=== PATIENT | male | born 1975 | race Caucasian/White ===

== ENCOUNTER 2020-11-26 21:57 | Inpatient (IN) | payer MEDICAID ==
[~2020-11-26] VITALS: Ht 185.4 cm; Wt 99.8 kg
[2020-11-26 23:07] LABS: EOSINOPHILS % (AUTO) 0.3 % (0-6); HEMOGLOBIN 15.9 g/dl (14.0-17.9); MONOCYTES # (AUTO) 0.7 X10'3 (0-0.9); WHITE BLOOD COUNT 9.6 X10'3 (4.5-11.0)
[2020-11-26 23:08] LABS: BASOPHILS # (AUTO) 0.1 X10'3 (0-0.2); BASOPHILS % (AUTO) 0.5 % (0-1); HEMATOCRIT 45.7 % (42.0-52.0); LYMPHOCYTES # (AUTO) 1.3 X10'3 (1.1-4.8); LYMPHOCYTES % (AUTO) 13.1 % (21-51); MEAN CORPUSCULAR HEMOGLOBIN 29.8 PG (27.0-31.0); MEAN CORPUSCULAR HGB CONC 34.7 g/dL (33.0-36.5); MEAN CORPUSCULAR VOLUME 85.9 FL (78-98); MEAN PLATELET VOLUME 8.6 FL (7.4-10.4); MONOCYTES % (AUTO) 7.4 % (2-12); NEUTROPHILS # (AUTO) 7.6 X10'3 (1.8-7.7); NEUTROPHILS % (AUTO) 78.7 % (42-75); PLATELET COUNT 233 X10'3 (140-440); RED BLOOD COUNT 5.32 X10'6 (4.70-6.10); RED CELL DISTRIBUTION WIDTH 14.3 % (11.5-14.5)
[2020-11-26 23:22] LABS: ALANINE AMINOTRANSFERASE 56 U/L (12-78); ALBUMIN 4.4 G/DL (3.4-5.0); ALBUMIN/GLOBULIN RATIO 1.3 (1.1-1.5); ALKALINE PHOSPHATASE 127 IU/L (46-116); ANION GAP 15 (8-16); ASPARTATE AMINO TRANSFERASE 25 U/L (10-37); BILIRUBIN,TOTAL 0.4 MG/DL (0.1-1.0); BLOOD UREA NITROGEN 21 MG/DL (7-18); BUN/CREATININE RATIO 17.9 (5.4-32.0); CALCIUM 9.4 MG/DL (8.5-10.1); CHLORIDE 99 MMOL/L (99-107); CREATININE 1.17 MG/DL (0.60-1.10); GLUCOSE 362 MG/DL (70-104); POTASSIUM 4.1 MMOL/L (3.5-5.1); SODIUM 135 MMOL/L (135-145); TOTAL PROTEIN 7.8 G/DL (6.4-8.2); eGFR 67 ML/MIN
--- NOTE | 2020-11-26 23:24 | NUR ---
patient able to urinate without any difficulty- sample sent to lab
[2020-11-26 23:25] LABS: CLARITY,URINE CLEAR (Clear); COLOR,URINE YELLOW (Yellow); GLUCOSE, URINE >=1000 mg/dl (Neg); KETONES,URINE NEGATIVE (Neg); LEUKOCYTE ESTERASE ,URINE NEGATIVE (Neg); NITRITES, URINE NEGATIVE (Neg); OCCULT BLOOD,URINE NEGATIVE (Neg); PROTEIN,URINE NEGATIVE (Neg); UROBILINOGEN,URINE 0.2 E.U/dL (0.2-1.0)
[2020-11-26 23:35] LABS: RBC,URINE 0-2 /HPF (0-2); UA COLLECTION TYPE CLN CATCH MIDSTREAM; WBC,URINE NONE SEEN /HPF (0-4)
[2020-11-26 23:36] LABS: BACTERIA,URINE NONE SEEN /HPF (Neg); SQUAMOUS EPITHELIAL CELL,UR FEW /LPF (FEW)
[2020-11-26] MEDS ORDERED: normal saline 1000ml 1,000 ML IV ONE (23:50)
[2020-11-27] MEDS: MESSAGE TO NURSING PO SCH
[2020-11-27] MEDS ORDERED: iohexol 300mg/ml 100ml inj. ONE (00:07)
[2020-11-27] MEDS ORDERED: ATOR40TA72 PO (00:52)
[2020-11-27] MEDS ORDERED: LISI-790 PO (00:52)
[2020-11-27] MEDS ORDERED: INSU100I31 SQ (00:52)
[2020-11-27] MEDS ORDERED: GLYB5TAB7 PO (00:52)
[2020-11-27] MEDS ORDERED: BUPR-72 PO (00:52)
[2020-11-27] MEDS ORDERED: ARIP5TAB60 PO (00:52)
[2020-11-27] MEDS ORDERED: METF500T3 PO (00:52)
[2020-11-27] MEDS ORDERED: ondansetron/PF 4mg/2ml inj IV PRN ×3 (01:30→01:35)
[2020-11-27] MEDS ORDERED: magnesium hydroxide 30ml (MOM) UD suspension PO PRN ×3 (01:30→01:35)
[2020-11-27] MEDS ORDERED: mag hydrox/Alum hydrox/simeth 30ml oral suspension PO PRN ×3 (01:30→01:35)
[2020-11-27] MEDS ORDERED: acetaminophen 325mg tablet PO PRN ×4 (01:30→01:35)
[2020-11-27] MEDS ORDERED: magnesium 4gm in 100ml NS 100 ML IV PRN (01:35)
[2020-11-27] MEDS ORDERED: HYDROcodone/acetaminophen 10/325mg tab PO PRN (01:35)
[2020-11-27] MEDS ORDERED: magnesium 2GM in 50ml NS 50 ML IV PRN (01:35)
[2020-11-27] MEDS ORDERED: potassium Cl 40MEQ/1/2NS 520ml 520 ML IV PRN ×2 (01:35)
[2020-11-27] MEDS ORDERED: morphine 2 MG/ML inj. syringe IV PRN ×2 (01:35)
[2020-11-27] MEDS ORDERED: magnesium Cl slow-release 64mg tablet PO PRN (01:35)
[2020-11-27] MEDS ORDERED: HYDROcodone/acetaminophen 5mg/325mg tablet PO PRN (01:35)
[2020-11-27] MEDS ORDERED: potassium Cl 20 mEq SR tablet PO PRN ×2 (01:35)
--- NOTE | 2020-11-27 01:50 | NUR ---
Patient ambulatory to and from bathroom with steady gait. Tolerated well- states feeling better than when he first came in.
[2020-11-27] MEDS ORDERED: MESSAGE TO PHARMACY PO ONE (02:00)
[2020-11-27] MEDS ORDERED: dextrose 50%-water 50ml dispensing syringe IV PRN ×2 (02:00)
[2020-11-27] MEDS ORDERED: glucagon, human recombinant 1mg kit SUBCUT PRN (02:00)
[2020-11-27] MEDS ORDERED: dextrose ORAL solution 15 GM/59 ML bottle PO PRN ×2 (02:00)
[2020-11-27] MEDS: normal saline 1000ml 1,000 ML IV SCH ×2 (02:03→16:12)
--- NOTE | 2020-11-27 04:24 | NUR ---
Patient resting in stretcher with eyes closed- appears to be asleep. Even and unlabored respirations.
[2020-11-27] MEDS ORDERED: LISI10TA27 PO (05:31)
[2020-11-27] MEDS ORDERED: METF-438 PO (05:31)
--- NOTE | 2020-11-27 06:57 | NUR ---
First admission assessment information entered on the wrong pt. Second admission information correct for this patient.
--- NOTE | 2020-11-27 07:41 | NUR ---
Patient in room ED 3. I have received report from JAVON Huynh and had the opportunity to ask questions and assume patient care. Waiting for patient to arrive to room 4022A.
[2020-11-27] MEDS: K and/or MAG REPLACEMENT MC SCH ×2 (08:00→20:00)
[2020-11-27 08:39] VITALS: BP 130/82
--- NOTE | 2020-11-27 08:40 | NUR ---
Received patient to room 4022A via wheelchair accompanied by x1 staff and niece. Patient is alert and oriented with no complaints at this time other than being hungry. Breakfast tray ordered for patient. Patient pain 1/10 to left groin and tolerable at this time. Denies any other symptoms. Oriented patient to room and call light. Call light placed within patient's reach. Visitor at bedside.
[2020-11-27 09:10] LABS: HEMATOCRIT 38.7 % (42.0-52.0); HEMOGLOBIN 13.1 g/dl (14.0-17.9); MEAN CORPUSCULAR HEMOGLOBIN 29.3 PG (27.0-31.0); MEAN CORPUSCULAR HGB CONC 33.9 g/dL (33.0-36.5); MEAN CORPUSCULAR VOLUME 86.4 FL (78-98); MEAN PLATELET VOLUME 8.4 FL (7.4-10.4); PLATELET COUNT 196 X10'3 (140-440); RED BLOOD COUNT 4.48 X10'6 (4.70-6.10); RED CELL DISTRIBUTION WIDTH 14.5 % (11.5-14.5)
[2020-11-27] MEDS: atorvastatin 20mg tablet PO SCH (09:57)
[2020-11-27] MEDS: buPROPion SR 150mg tablet PO SCH ×2 (09:57→19:15)
[2020-11-27] MEDS: lisinopril 10 MG tablet PO SCH (09:57)
--- NOTE | 2020-11-27 10:00 | NUR ---
Patient refuses to have COVID test. States, "I'm not all into that kind of stuff. I don't want to have it done."
[2020-11-27] MEDS: aripiprazole 5mg tablet PO SCH (10:26)
[2020-11-27 11:32] VITALS: BP 123/71
[2020-11-27] MEDS: insulin Lispro (HumaLOG) vial - multi-dose SQ SCH ×2 (13:39→19:16)
[2020-11-27 14:14] LABS: HEMATOCRIT 37.5 % (42.0-52.0); HEMOGLOBIN 12.6 g/dl (14.0-17.9); MEAN CORPUSCULAR HEMOGLOBIN 29.5 PG (27.0-31.0); MEAN CORPUSCULAR HGB CONC 33.6 g/dL (33.0-36.5); MEAN CORPUSCULAR VOLUME 87.8 FL (78-98); MEAN PLATELET VOLUME 8.7 FL (7.4-10.4); PLATELET COUNT 195 X10'3 (140-440); RED BLOOD COUNT 4.27 X10'6 (4.70-6.10); WHITE BLOOD COUNT 4.5 X10'3 (4.5-11.0)
--- NOTE | 2020-11-27 16:39 | NUR ---
Patient seen snacking on peanuts in room. Patient states he is aware this will increase his BG but "that if I'm going to have it go up I'm at the right place to be."
[2020-11-27 18:00] VITALS: BP 119/83
--- NOTE | 2020-11-27 18:15 | NUR ---
Patient in room ORTHO 4022. I have received report from JAVON Carter and had the opportunity to ask questions and assume patient care.
--- NOTE | 2020-11-27 18:22 | NUR ---
Problems reprioritized. Patient report given, questions answered & plan of care reviewed with JAVON Keys.
[2020-11-27] MEDS ORDERED: temazepam 15mg capsule PO PRN (21:00)
[2020-11-27] MEDS ORDERED: insulin glargine (Lantus) pen - multi-dose SQ SCH (21:00)
[2020-11-27 22:00] VITALS: BP 126/93
[2020-11-28] MEDS: MESSAGE TO NURSING PO SCH
[2020-11-28 02:20] LABS: BASOPHILS % (AUTO) 0.7 % (0-1); EOSINOPHILS # (AUTO) 0.1 X10'3 (0-0.9); EOSINOPHILS % (AUTO) 1.9 % (0-6); HEMATOCRIT 39.1 % (42.0-52.0); HEMOGLOBIN 13.5 g/dl (14.0-17.9); LYMPHOCYTES # (AUTO) 1.4 X10'3 (1.1-4.8); LYMPHOCYTES % (AUTO) 31.8 % (21-51); MEAN CORPUSCULAR HEMOGLOBIN 29.8 PG (27.0-31.0); MEAN CORPUSCULAR HGB CONC 34.6 g/dL (33.0-36.5); MEAN PLATELET VOLUME 8.7 FL (7.4-10.4); MONOCYTES # (AUTO) 0.5 X10'3 (0-0.9); NEUTROPHILS # (AUTO) 2.5 X10'3 (1.8-7.7); NEUTROPHILS % (AUTO) 54.6 % (42-75); PLATELET COUNT 199 X10'3 (140-440); RED BLOOD COUNT 4.55 X10'6 (4.70-6.10); RED CELL DISTRIBUTION WIDTH 14.7 % (11.5-14.5); WHITE BLOOD COUNT 4.5 X10'3 (4.5-11.0)
[2020-11-28 02:32] LABS: ALANINE AMINOTRANSFERASE 47 U/L (12-78); ALBUMIN 3.5 G/DL (3.4-5.0); ALBUMIN/GLOBULIN RATIO 1.2 (1.1-1.5); ALKALINE PHOSPHATASE 99 IU/L (46-116); ANION GAP 7 (8-16); ASPARTATE AMINO TRANSFERASE 20 U/L (10-37); BILIRUBIN,TOTAL 0.4 MG/DL (0.1-1.0); BLOOD UREA NITROGEN 17 MG/DL (7-18); BUN/CREATININE RATIO 19.5 (5.4-32.0); CALCIUM 8.5 MG/DL (8.5-10.1); CHLORIDE 105 MMOL/L (99-107); CREATININE 0.87 MG/DL (0.60-1.10); GLUCOSE 237 MG/DL (70-104); MAGNESIUM 2.2 MG/DL (1.5-2.4); POTASSIUM 4.2 MMOL/L (3.5-5.1); SODIUM 139 MMOL/L (135-145); TOTAL CARBON DIOXIDE 27.5 MMOL/L (24-32); TOTAL PROTEIN 6.5 G/DL (6.4-8.2); eGFR > 90 ML/MIN
[2020-11-28] MEDS: normal saline 1000ml 1,000 ML IV SCH (05:31)
[2020-11-28 06:00] VITALS: BP 100/53
--- NOTE | 2020-11-28 06:13 | NUR ---
Problems reprioritized. Patient report given, questions answered & plan of care reviewed with JAVON Cochran.
[2020-11-28 06:26] LABS: HEMATOCRIT 39.3 % (42.0-52.0); HEMOGLOBIN 13.3 g/dl (14.0-17.9); MEAN CORPUSCULAR HEMOGLOBIN 29.9 PG (27.0-31.0); MEAN CORPUSCULAR HGB CONC 33.8 g/dL (33.0-36.5); MEAN CORPUSCULAR VOLUME 88.4 FL (78-98); MEAN PLATELET VOLUME 8.7 FL (7.4-10.4); PLATELET COUNT 201 X10'3 (140-440); RED BLOOD COUNT 4.45 X10'6 (4.70-6.10); RED CELL DISTRIBUTION WIDTH 14.7 % (11.5-14.5); WHITE BLOOD COUNT 4.4 X10'3 (4.5-11.0)
[2020-11-28 07:23] VITALS: BP_SYST 100
[2020-11-28] MEDS: buPROPion SR 150mg tablet PO SCH (07:23)
[2020-11-28] MEDS: lisinopril 10 MG tablet PO SCH (07:23)
[2020-11-28] MEDS: aripiprazole 5mg tablet PO SCH (07:23)
[2020-11-28] MEDS: atorvastatin 20mg tablet PO SCH (07:23)
[2020-11-28] MEDS: insulin Lispro (HumaLOG) vial - multi-dose SQ SCH (08:42)
== END 2020-11-28 09:30 | disposition home or self-care (01) | DRG 384 ==
LOC: ER 21:58 → ED HOLD 11-27 01:30 → ORTHO 4S 11-27 08:41
PROVIDERS: ADMIT Internal Medicine; ATTEND Family Medicine
PROC: BW211ZZ Computerized Tomography (CT Scan) of Abdomen and Pelvis using Low Osmolar Contrast (ICD-10-PCS; principal; 2020-11-27)
DX: S30.1XXA Contusion of abdominal wall, initial encounter (principal); E78.5 Hyperlipidemia, unspecified; X58.XXXA Exposure to other specified factors, initial encounter; Y93.89 Activity, other specified; Y92.89 Other specified places as the place of occurrence of the external cause; Y99.8 Other external cause status; I10 Essential (primary) hypertension
CPT/HCPCS: 36415; 74177; 80053; 81001; 82948; 83036; 83735; 85025; 85027; 86885; 86900; 86901; 87081; 93005; 96360; 99285; G0378; J1815; J7030; Q9967

== ENCOUNTER 2021-06-12 16:18 | Emergency (ER) | payer MEDICAID ==
[~2021-06-12] VITALS: Ht 182.9 cm; Wt 102.4 kg
[~2021-06-12 16:18] MED LIST: ARIP5TAB60 PO; ATOR40TA72 PO; BUPR-72 PO; GLYB5TAB7 PO; INSU100I31 SQ; LISI10TA27 PO; METF-438 PO
[2021-06-12 17:13] LABS: CLARITY,URINE CLEAR (Clear); COLOR,URINE YELLOW (Yellow); GLUCOSE, URINE 500 mg/dl (Neg); KETONES,URINE >=80 mg/dl (Neg); LEUKOCYTE ESTERASE ,URINE NEGATIVE (Neg); NITRITES, URINE NEGATIVE (Neg); OCCULT BLOOD,URINE SMALL (Neg); PROTEIN,URINE 30 mg/dl (Neg); UROBILINOGEN,URINE 0.2 E.U/dL (0.2-1.0)
[2021-06-12 17:14] LABS: UA COLLECTION TYPE CLN CATCH MIDSTREAM
[2021-06-12 17:25] LABS: BACTERIA,URINE FEW /HPF (Neg); MUCUS STRANDS FEW /LPF (Neg); RBC,URINE 0-2 /HPF (0-2); SQUAMOUS EPITHELIAL CELL,UR FEW /LPF (FEW); WBC,URINE 0-4 /HPF (0-4); YEAST FEW /HPF (NEGATIVE)
[2021-06-12 17:52] LABS: BASOPHILS % (AUTO) 0.7 % (0-1); EOSINOPHILS # (AUTO) 0.1 X10'3 (0-0.9); HEMATOCRIT 50.3 % (42.0-52.0); HEMOGLOBIN 17.9 g/dl (14.0-17.9); LYMPHOCYTES # (AUTO) 1.2 X10'3 (1.1-4.8); MEAN CORPUSCULAR HEMOGLOBIN 30.4 PG (27.0-31.0); MEAN CORPUSCULAR HGB CONC 35.7 g/dL (33.0-36.5); MEAN CORPUSCULAR VOLUME 85.2 FL (78-98); MEAN PLATELET VOLUME 9.3 FL (7.4-10.4); MONOCYTES # (AUTO) 0.6 X10'3 (0-0.9); MONOCYTES % (AUTO) 8.5 % (2-12); NEUTROPHILS # (AUTO) 4.7 X10'3 (1.8-7.7); NEUTROPHILS % (AUTO) 71.8 % (42-75); PLATELET COUNT 174 X10'3 (140-440); WHITE BLOOD COUNT 6.5 X10'3 (4.5-11.0)
[2021-06-12 18:30] LABS: ALANINE AMINOTRANSFERASE 50 U/L (12-78); ALBUMIN 4.3 G/DL (3.4-5.0); ALBUMIN/GLOBULIN RATIO 1.2 (1.1-1.5); ALKALINE PHOSPHATASE 114 IU/L (46-116); ASPARTATE AMINO TRANSFERASE 25 U/L (10-37); BILIRUBIN,TOTAL 0.6 MG/DL (0.1-1.0); BLOOD UREA NITROGEN 15 MG/DL (7-18); BUN/CREATININE RATIO 15.6 (5.4-32.0); CALCIUM 9.5 MG/DL (8.5-10.1); CHLORIDE 95 MMOL/L (99-107); CREATININE 0.96 MG/DL (0.60-1.10); GLUCOSE 241 MG/DL (70-104); LIPASE 77 U/L (73-393); POTASSIUM 4.9 MMOL/L (3.5-5.1); SODIUM 133 MMOL/L (135-145); TOTAL PROTEIN 7.8 G/DL (6.4-8.2); eGFR 84 ML/MIN
[2021-06-12 18:34] LABS: ANION GAP 25 (8-16); TOTAL CARBON DIOXIDE 12.8 MMOL/L (24-32)
[2021-06-12] MEDS ORDERED: normal saline 1000ML IV soln IVB ONE (19:10)
[2021-06-12 19:14] VITALS: BP 162/94
== END 2021-06-12 21:29 | disposition home or self-care (01) ==
LOC: ER 16:19
DX: E87.2 Acidosis (principal); R10.84 Generalized abdominal pain; R11.10 Vomiting, unspecified; E78.00 Pure hypercholesterolemia, unspecified; I10 Essential (primary) hypertension; Z56.0 Unemployment, unspecified; Z79.4 Long term (current) use of insulin; Z79.899 Other long term (current) drug therapy
CPT/HCPCS: 36415; 80053; 81001; 83605; 83690; 84145; 85025; 96360; 99283; J7030

== ENCOUNTER 2021-06-14 09:25 | Inpatient (IN) | payer MEDICAID ==
[~2021-06-14] VITALS: Ht 182.9 cm; Wt 100.0 kg
[2021-06-14] MEDS ORDERED: normal saline 1000ML IV soln IV ONE (09:50)
[2021-06-14 10:56] LABS: BASOPHILS % (AUTO) 0.1 % (0-1); EOSINOPHILS % (AUTO) 0.1 % (0-6); HEMATOCRIT 58.9 % (42.0-52.0); LYMPHOCYTES # (AUTO) 0.9 X10'3 (1.1-4.8); MEAN CORPUSCULAR HEMOGLOBIN 29.3 PG (27.0-31.0); MEAN CORPUSCULAR VOLUME 88.6 FL (78-98); MEAN PLATELET VOLUME 9.6 FL (7.4-10.4); MONOCYTES % (AUTO) 6.9 % (2-12); NEUTROPHILS # (AUTO) 12.4 X10'3 (1.8-7.7); NEUTROPHILS % (AUTO) 86.9 % (42-75); PLATELET COUNT 289 X10'3 (140-440); RED BLOOD COUNT 6.65 X10'6 (4.70-6.10); WHITE BLOOD COUNT 14.3 X10'3 (4.5-11.0)
[2021-06-14 11:00] LABS: HEMOGLOBIN 19.4 g/dl (14.0-17.9)
[2021-06-14 12:35] LABS: LARGE PLATELETS FEW; PLATELET ESTIMATE NORMAL; TOTAL CELLS COUNTED 100
[2021-06-14 12:59] LABS: ALANINE AMINOTRANSFERASE 41 U/L (12-78); ALBUMIN 4.5 G/DL (3.4-5.0); ALKALINE PHOSPHATASE 121 IU/L (46-116); ANION GAP 33 (8-16); BILIRUBIN,TOTAL 0.7 MG/DL (0.1-1.0); BLOOD UREA NITROGEN 32 MG/DL (7-18); BUN/CREATININE RATIO 16.3 (5.4-32.0); CALCIUM 9.3 MG/DL (8.5-10.1); CHLORIDE 84 MMOL/L (99-107); CREATININE 1.96 MG/DL (0.60-1.10); MAGNESIUM 2.2 MG/DL (1.5-2.4); SODIUM 123 MMOL/L (135-145); TOTAL PROTEIN 8.8 G/DL (6.4-8.2); eGFR 37 ML/MIN
[2021-06-14 13:01] LABS: ASPARTATE AMINO TRANSFERASE 23 U/L (10-37)
[2021-06-14 13:03] LABS: GLUCOSE 533 MG/DL (70-104)
[2021-06-14 13:04] LABS: POTASSIUM 6.8 MMOL/L (3.5-5.1); TOTAL CARBON DIOXIDE 5.8 MMOL/L (24-32)
[2021-06-14] MEDS ORDERED: sodium polystyrene sulfonate 15gm/60ml oral suspension PO ONE ×2 (13:10→14:00)
[2021-06-14] MEDS ORDERED: furosemide 10 MG/1 ML 10ml inj IV ONE (13:10)
[2021-06-14] MEDS ORDERED: insulin regular, human 10 units/0.1 ml syringe IV PRN (13:10)
[2021-06-14 13:44] LABS: PHOSPHORUS 8.1 MG/DL (2.3-4.5)
[2021-06-14] MEDS ORDERED: magnesium Cl slow-release 64mg tablet PO PRN (13:50)
[2021-06-14] MEDS ORDERED: Insulin Reg/NS 100units/100mL 100 ML IV SCH (13:50)
[2021-06-14] MEDS ORDERED: potassium CL 20mEq in D5-1/2NS 1,000 ML IV PRN (13:50)
[2021-06-14] MEDS ORDERED: sodium bicarbonate (8.4%) inj. 100 MEQ in dextrose 5% water 500ml 500 ML IV PRN (13:50)
[2021-06-14] MEDS ORDERED: morphine 2 MG/ML inj. syringe IV PRN (13:50)
[2021-06-14] MEDS ORDERED: sodium phosphate inj. 15 MMOL in dextrose 5%-water 250 ML IV PRN (13:50)
[2021-06-14] MEDS ORDERED: insulin regular, human U-100 3ml vial - multi-dose IV PRN (13:50)
[2021-06-14] MEDS ORDERED: HYDROcodone/acetaminophen 5mg/325mg tablet PO PRN (13:50)
[2021-06-14] MEDS: normal saline 1000ml 1,000 ML IV SCH ×5 (13:50→20:42)
[2021-06-14] MEDS ORDERED: ondansetron/PF 4mg/2ml inj IV PRN (13:50)
[2021-06-14] MEDS ORDERED: acetaminophen 325mg tablet PO PRN ×2 (13:50)
[2021-06-14] MEDS ORDERED: potassium Cl 40MEQ/1/2NS 520ml 520 ML IV PRN ×2 (13:50)
[2021-06-14] MEDS ORDERED: magnesium 2GM in 50ml NS 50 ML IV PRN (13:50)
[2021-06-14] MEDS ORDERED: magnesium 4gm in 100ml NS 100 ML IV PRN (13:50)
[2021-06-14] MEDS ORDERED: sodium bicarbonate (8.4%) inj. 50 MEQ in dextrose 5% water 500ml 250 ML IV PRN (13:50)
[2021-06-14] MEDS ORDERED: Neutra Phos packet PO PRN (13:50)
[2021-06-14] MEDS ORDERED: potassium Cl 20 mEq SR tablet PO PRN (13:50)
[2021-06-14] MEDS ORDERED: sodium phosphate inj. 30 MMOL in dextrose 5%-water 250 ML IV PRN (13:50)
[2021-06-14 13:53] LABS: ABG BASE EXCESS -24.2 mmol/L (-2.0-2.0); ABG HCO3 3.5 mmol/L (22.0-26.0); ABG OXYGEN SATURATION 97.7 % (94-97); ABG PCO2 (T) 12.4 mmHg (35.0-48.0); ABG PO2 (T) 125.9 mmHg (75.0-100.0); ALLEN'S TEST POSITIVE; FCOHb 0.5 % (0.0-3.9); FMetHb 0.1 % (0.0-1.5); FO2Hb 97.1 % (94-97); TOTAL HEMOGLOBIN 17.8 G/dl (14.0-18.0)
[2021-06-14] MEDS ORDERED: insulin regular, human 10 units/0.1 ml syringe IV ONE (14:20)
[2021-06-14] MEDS: Insulin Reg/NS 100units/100mL 100 ML IV SCH (14:24)
[2021-06-14 14:46] LABS: CLARITY,URINE SLIGHTLY CLOUDY (Clear); COLOR,URINE YELLOW (Yellow); GLUCOSE, URINE >=1000 mg/dl (Neg); KETONES,URINE >=80 mg/dl (Neg); LEUKOCYTE ESTERASE ,URINE NEGATIVE (Neg); NITRITES, URINE NEGATIVE (Neg); OCCULT BLOOD,URINE SMALL (Neg); PROTEIN,URINE 30 mg/dl (Neg); UROBILINOGEN,URINE 0.2 E.U/dL (0.2-1.0)
[2021-06-14 14:54] LABS: URINE AMPHETAMINE SCREEN NEGATIVE (Neg); URINE BARBITUATE SCREEN NEGATIVE (Neg); URINE BENZODIAZEPINES SCREEN NEGATIVE (Neg); URINE CANNABINOID SCREEN POSITIVE (Neg); URINE COCAINE SCREEN NEGATIVE (Neg); URINE METHADONE SCREEN NEGATIVE (Neg); URINE OPIATE SCREEN NEGATIVE (Neg); URINE PHENCYCLIDINE SCREEN NEGATIVE (Neg)
[2021-06-14 15:09] LABS: UA COLLECTION TYPE VOIDED
[2021-06-14 15:10] LABS: HYALINE CASTS 0-3 /LPF (NEGATIVE); MUCUS STRANDS FEW /LPF (Neg); SQUAMOUS EPITHELIAL CELL,UR FEW /LPF (FEW)
[2021-06-14 15:11] LABS: BACTERIA,URINE FEW /HPF (Neg); RBC,URINE 0-2 /HPF (0-2); WBC,URINE 0-4 /HPF (0-4)
[2021-06-14 16:02] LABS: ALBUMIN 3.9 G/DL (3.4-5.0); ANION GAP 32 (8-16); BLOOD UREA NITROGEN 37 MG/DL (7-18); BUN/CREATININE RATIO 17.5 (5.4-32.0); CALCIUM 8.7 MG/DL (8.5-10.1); CHLORIDE 87 MMOL/L (99-107); CREATININE 2.12 MG/DL (0.60-1.10); PHOSPHORUS 6.7 MG/DL (2.3-4.5); SODIUM 125 MMOL/L (135-145); eGFR 34 ML/MIN
[2021-06-14 16:07] LABS: GLUCOSE 562 MG/DL (70-104); TOTAL CARBON DIOXIDE 6.1 MMOL/L (24-32)
[2021-06-14] MEDS: nicotine 14mg patch - 24hr TD SCH (18:56)
[2021-06-14 19:00] VITALS: BP 117/71
[2021-06-14] MEDS: K and/or MAG REPLACEMENT MC SCH (20:00)
[2021-06-14] MEDS ORDERED: dexamethasone 4mg/ml inj IV SCH (20:00)
[2021-06-14] MEDS: buPROPion SR 150mg tablet PO SCH (20:28)
[2021-06-14] MEDS: heparin, porcine 5000 units/ml vial SQ SCH (20:28)
[2021-06-14 22:00] VITALS: BP 112/69
[2021-06-14 22:27] LABS: ALANINE AMINOTRANSFERASE 30 U/L (12-78); ALBUMIN 3.4 G/DL (3.4-5.0); ALKALINE PHOSPHATASE 89 IU/L (46-116); ANION GAP 22 (8-16); ASPARTATE AMINO TRANSFERASE 10 U/L (10-37); BILIRUBIN,TOTAL 0.6 MG/DL (0.1-1.0); BLOOD UREA NITROGEN 37 MG/DL (7-18); BUN/CREATININE RATIO 22.2 (5.4-32.0); CHLORIDE 94 MMOL/L (99-107); CREATININE 1.67 MG/DL (0.60-1.10); GLUCOSE 367 MG/DL (70-104); PHOSPHORUS 3.7 MG/DL (2.3-4.5); POTASSIUM 4.4 MMOL/L (3.5-5.1); SODIUM 127 MMOL/L (135-145); TOTAL PROTEIN 6.8 G/DL (6.4-8.2); eGFR 44 ML/MIN
[2021-06-15] MEDS: dextrose 5%-1/2 normal saline 1,000 ML IV SCH ×4 (00:30→16:05)
[2021-06-15 02:00] VITALS: BP 116/74
[2021-06-15] MEDS: normal saline 1000ml 1,000 ML IV SCH (02:03)
[2021-06-15] MEDS: Insulin Reg/NS 100units/100mL 100 ML IV SCH (04:40)
--- NOTE | 2021-06-15 04:58 | NUR ---
Patient received from the ER, new admit, in alert and responsive state. Admitted for diabetic ketoacidosis, with blood glucose at 563 on getting to the floor. Patient was on Insulin drip at 10ml/hr when arriving from the ER, with NS at 250ml/hr. Blood glucose checks was performed hourly since, and results have consistently declined. At 0130, blood glucose was below 250 for the first time, and per DKA protocol, Insulin drip was reduced from 10ml/hr to 5ml/hr, while NS at 250 was replaced with D4 +0.45 at 150ml/hr. Blood glucose presently at 211. Patient has denied respiratory or physical distress, and has been comfortable in bed. Needs attended to. .
[2021-06-15 06:00] VITALS: BP 103/72
--- NOTE | 2021-06-15 06:00 | NUR ---
Patient in room PCU 3008. I have received report from NI. ALEJANDRO and had the opportunity to ask questions and assume patient care.
[2021-06-15] MEDS: K and/or MAG REPLACEMENT MC SCH ×2 (08:00→19:39)
[2021-06-15 08:55] LABS: BASOPHILS % (AUTO) 0.1 % (0-1); EOSINOPHILS % (AUTO) 0.1 % (0-6); HEMATOCRIT 51.8 % (42.0-52.0); LYMPHOCYTES # (AUTO) 0.7 X10'3 (1.1-4.8); LYMPHOCYTES % (AUTO) 6.8 % (21-51); MEAN CORPUSCULAR HEMOGLOBIN 29.4 PG (27.0-31.0); MEAN CORPUSCULAR HGB CONC 34.8 g/dL (33.0-36.5); MEAN CORPUSCULAR VOLUME 84.6 FL (78-98); MEAN PLATELET VOLUME 9.2 FL (7.4-10.4); MONOCYTES # (AUTO) 1.7 X10'3 (0-0.9); MONOCYTES % (AUTO) 16.2 % (2-12); NEUTROPHILS # (AUTO) 8.1 X10'3 (1.8-7.7); NEUTROPHILS % (AUTO) 76.8 % (42-75); PLATELET COUNT 186 X10'3 (140-440); RED BLOOD COUNT 6.13 X10'6 (4.70-6.10); RED CELL DISTRIBUTION WIDTH 13.3 % (11.5-14.5); WHITE BLOOD COUNT 10.6 X10'3 (4.5-11.0)
[2021-06-15] MEDS: dexamethasone 6 MG in D5W 100ml IV soln IV SCH (09:18)
[2021-06-15] MEDS: heparin, porcine 5000 units/ml vial SQ SCH ×2 (09:19→19:41)
[2021-06-15] MEDS: lisinopril 10 MG tablet PO SCH (09:19)
[2021-06-15] MEDS: buPROPion SR 150mg tablet PO SCH ×2 (09:20→19:41)
[2021-06-15] MEDS: atorvastatin 20mg tablet PO SCH (09:20)
[2021-06-15] MEDS: nicotine 14mg patch - 24hr TD SCH (09:21)
--- NOTE | 2021-06-15 10:17 | NUR ---
Initial: Pt admit for DKA with hyponatremia and COVID, currently in airborne precautions. Per H&P pt with five episodes of emesis prior to admit. Pt currently NPO and receiving D5/NS at 150 mL/hr providing 612 kcal/day. Noted current A1c 10.0% up from 7.9% 11/27/20 per EMR. Pt would benefit from DM education once more stable. No documented BM. No appropriate nutrition interventions at this time given NPO status. Will continue to follow closely and make recommendations as appropriate. Recommendations: 1) Advance to CHO controlled diet as medically indicated 2) Monitor need for ONS/additional protein with diet advancement 3) Routine bowel care 4) Weekly scaled weights 5) DM education once appropriate; A1c 10.0% and admit with DKA, PMH T2DM Addendum: 06/15/21 at [address] Amended: Links added.
[2021-06-15 11:00] VITALS: BP 116/72
[2021-06-15 11:24] LABS: ALANINE AMINOTRANSFERASE 32 U/L (12-78); ALBUMIN 3.8 G/DL (3.4-5.0); ALBUMIN/GLOBULIN RATIO 1.2 (1.1-1.5); ALKALINE PHOSPHATASE 91 IU/L (46-116); ANION GAP 20 (8-16); ASPARTATE AMINO TRANSFERASE 15 U/L (10-37); BILIRUBIN,TOTAL 0.5 MG/DL (0.1-1.0); BLOOD UREA NITROGEN 24 MG/DL (7-18); BUN/CREATININE RATIO 24.5 (5.4-32.0); CALCIUM 8.7 MG/DL (8.5-10.1); CHLORIDE 99 MMOL/L (99-107); CHOL/HDL RATIO 6.4 (0.00-4.99); CHOLESTEROL 166 MG/DL (0-200); CREATININE 0.98 MG/DL (0.60-1.10); GLUCOSE 213 MG/DL (70-104); HDL CHOLESTEROL 26 MG/DL (35-60); LDL CHOLESTEROL 77 MG/DL (50-100); PHOSPHORUS 2.5 MG/DL (2.3-4.5); POTASSIUM 4.1 MMOL/L (3.5-5.1); SODIUM 134 MMOL/L (135-145); TOTAL PROTEIN 6.9 G/DL (6.4-8.2); TRIGLYCERIDES 333 MG/DL (20-135); eGFR 82 ML/MIN
[2021-06-15 11:30] LABS: TOTAL CARBON DIOXIDE 14.6 MMOL/L (24-32)
--- NOTE | 2021-06-15 11:58 | NUR ---
Patient in room PCU 3008. I have received report from JAVON Maya and had the opportunity to ask questions and assume patient care.
[2021-06-15 13:22] LABS: PLATELET ESTIMATE NORMAL; TOTAL CELLS COUNTED 100
[2021-06-15 15:00] VITALS: BP 109/55
--- NOTE | 2021-06-15 18:00 | NUR ---
PATIENT NOTED TO HAVE UNRESOLVED HICCUPS SINCE ADMISSION. NO PAIN ISSUES, DKA UNRESOLVED AT THIS TIME
--- NOTE | 2021-06-15 18:33 | NUR ---
Patient in room PCU 3008. I have received report from Odalys ALEJANDRO and had the opportunity to ask questions and assume patient care.
[2021-06-15 18:42] VITALS: BP 141/77
[2021-06-15 21:11] LABS: ALBUMIN 3.2 G/DL (3.4-5.0); ANION GAP 15 (8-16); BLOOD UREA NITROGEN 16 MG/DL (7-18); CALCIUM 8.6 MG/DL (8.5-10.1); CHLORIDE 103 MMOL/L (99-107); CREATININE 0.84 MG/DL (0.60-1.10); GLUCOSE 157 MG/DL (70-104); POTASSIUM 3.9 MMOL/L (3.5-5.1); SODIUM 137 MMOL/L (135-145); eGFR > 90 ML/MIN
[2021-06-15] MEDS ORDERED: dextrose 50%-water 50ml dispensing syringe IV PRN ×2 (21:15)
[2021-06-15] MEDS ORDERED: insulin regular, human U-100 3ml vial - multi-dose SQ SCH (21:15)
[2021-06-15] MEDS ORDERED: glucagon, human recombinant 1mg kit SUBCUT PRN (21:15)
[2021-06-15] MEDS ORDERED: MESSAGE TO PHARMACY PO ONE (21:15)
[2021-06-15] MEDS ORDERED: dextrose ORAL solution 15 GM/59 ML bottle PO PRN ×2 (21:15)
[2021-06-15 21:34] VITALS: BP 126/83
[2021-06-15 23:59] LABS: ALBUMIN 3.1 G/DL (3.4-5.0); ANION GAP 12 (8-16); BLOOD UREA NITROGEN 15 MG/DL (7-18); BUN/CREATININE RATIO 19.7 (5.4-32.0); CALCIUM 8.5 MG/DL (8.5-10.1); CHLORIDE 104 MMOL/L (99-107); CREATININE 0.76 MG/DL (0.60-1.10); GLUCOSE 169 MG/DL (70-104); POTASSIUM 3.5 MMOL/L (3.5-5.1); SODIUM 137 MMOL/L (135-145); TOTAL CARBON DIOXIDE 21.2 MMOL/L (24-32); eGFR > 90 ML/MIN
[2021-06-16] VITALS (7 sets, daily range): BP systolic 127–145; BP diastolic 69–83
--- NOTE | 2021-06-16 00:27 | NUR ---
02575 LABS RESULTED: ANION 12, POTASSIUM 3.5, CO2 21.2, BG 170. WILL STOP INSULIN GTT AND D5 .45 NS PER PROTOCOL, FEED PATIENT, COVER WITH INSULIN AND POTASSIUM REPLACEMENT ORALLY PER PROTOCOL. WILL ORDER BMP FOR 0415, RECHECK BG IN 2 HRS. CONFERRED WITH ADOPTION COUNSELORJAVON HAWKINS RN
[2021-06-16] MEDS: insulin Lispro (HumaLOG) vial - multi-dose SQ SCH ×4 (01:08→18:03)
[2021-06-16] MEDS: potassium Cl 20 mEq SR tablet PO PRN ×2 (01:21→05:20)
--- NOTE | 2021-06-16 03:48 | NUR ---
blood [id number], no interventions needed per protocol at this time Roderick ALEJANDRO
[2021-06-16] MEDS: Insulin Reg/NS 100units/100mL 100 ML IV SCH (05:10)
[2021-06-16] MEDS: dextrose 5%-1/2 normal saline 1,000 ML IV SCH ×3 (05:25→18:45)
--- NOTE | 2021-06-16 06:00 | NUR ---
Patient in room PCU 3008. I have received report from JAVON Javed and had the opportunity to ask questions and assume patient care.
--- NOTE | 2021-06-16 06:05 | NUR ---
Problems reprioritized. Patient report given, questions answered & plan of care reviewed with Jesus Manuel ALEJANDRO. Addendum: 06/16/21 at 0607 by Tegan Reddy RN Problems reprioritized. Patient report given, questions answered & plan of care reviewed with yessenia alejandro.
[2021-06-16 06:43] LABS: BASOPHILS % (AUTO) 0.1 % (0-1); EOSINOPHILS % (AUTO) 0.2 % (0-6); LYMPHOCYTES % (AUTO) 12.8 % (21-51); MEAN CORPUSCULAR HEMOGLOBIN 29.4 PG (27.0-31.0); MEAN CORPUSCULAR HGB CONC 34.7 g/dL (33.0-36.5); MEAN CORPUSCULAR VOLUME 84.5 FL (78-98); MEAN PLATELET VOLUME 9.1 FL (7.4-10.4); MONOCYTES # (AUTO) 1.1 X10'3 (0-0.9); MONOCYTES % (AUTO) 14.2 % (2-12); NEUTROPHILS # (AUTO) 5.7 X10'3 (1.8-7.7); NEUTROPHILS % (AUTO) 72.7 % (42-75); PLATELET COUNT 165 X10'3 (140-440); RED BLOOD COUNT 5.45 X10'6 (4.70-6.10); RED CELL DISTRIBUTION WIDTH 13.2 % (11.5-14.5); WHITE BLOOD COUNT 7.8 X10'3 (4.5-11.0)
[2021-06-16 06:47] LABS: ALANINE AMINOTRANSFERASE 22 U/L (12-78); ALKALINE PHOSPHATASE 70 IU/L (46-116); ANION GAP 18 (8-16); ASPARTATE AMINO TRANSFERASE 9 U/L (10-37); BILIRUBIN,TOTAL 0.7 MG/DL (0.1-1.0); BLOOD UREA NITROGEN 17 MG/DL (7-18); BUN/CREATININE RATIO 23.6 (5.4-32.0); CALCIUM 8.3 MG/DL (8.5-10.1); CHLORIDE 99 MMOL/L (99-107); CREATININE 0.72 MG/DL (0.60-1.10); GLUCOSE 263 MG/DL (70-104); SODIUM 134 MMOL/L (135-145); TOTAL PROTEIN 5.9 G/DL (6.4-8.2); eGFR > 90 ML/MIN
[2021-06-16] MEDS: K and/or MAG REPLACEMENT MC SCH ×2 (08:00→19:48)
[2021-06-16] MEDS: dexamethasone 6 MG in D5W 100ml IV soln IV SCH (10:10)
[2021-06-16] MEDS: nicotine 14mg patch - 24hr TD SCH (10:10)
[2021-06-16] MEDS: heparin, porcine 5000 units/ml vial SQ SCH ×2 (10:11→19:49)
[2021-06-16] MEDS: lisinopril 10 MG tablet PO SCH (10:11)
[2021-06-16] MEDS: atorvastatin 20mg tablet PO SCH (10:11)
[2021-06-16] MEDS: buPROPion SR 150mg tablet PO SCH ×2 (10:12→19:48)
--- NOTE | 2021-06-16 18:15 | NUR ---
Patient in room PCU 3008. I have received report from HAYLIE ALEJANDRO and had the opportunity to ask questions and assume patient care.
[2021-06-16] MEDS ORDERED: insulin glargine (Lantus) pen - multi-dose SQ SCH (21:00)
[2021-06-17] MEDS: Insulin Reg/NS 100units/100mL 100 ML IV SCH (01:10)
[2021-06-17] MEDS: dextrose 5%-1/2 normal saline 1,000 ML IV SCH ×3 (01:25→14:45)
[2021-06-17 01:35] VITALS: BP 128/83
[2021-06-17 06:00] VITALS: BP 127/80
--- NOTE | 2021-06-17 06:08 | NUR ---
SHIFT CHANGE REPORT GIVEN TO HAYLIE
--- NOTE | 2021-06-17 06:21 | NUR ---
Patient in room PCU 3008. I have received report from JAVON mcmahon and had the opportunity to ask questions and assume patient care.
[2021-06-17 07:34] LABS: BASOPHILS % (AUTO) 0.1 % (0-1); EOSINOPHILS % (AUTO) 0.1 % (0-6); HEMATOCRIT 45.6 % (42.0-52.0); HEMOGLOBIN 15.8 g/dl (14.0-17.9); LYMPHOCYTES # (AUTO) 1.2 X10'3 (1.1-4.8); LYMPHOCYTES % (AUTO) 15.7 % (21-51); MEAN CORPUSCULAR HEMOGLOBIN 29.6 PG (27.0-31.0); MEAN CORPUSCULAR HGB CONC 34.7 g/dL (33.0-36.5); MEAN CORPUSCULAR VOLUME 85.2 FL (78-98); MEAN PLATELET VOLUME 8.5 FL (7.4-10.4); MONOCYTES # (AUTO) 0.9 X10'3 (0-0.9); MONOCYTES % (AUTO) 11.5 % (2-12); NEUTROPHILS # (AUTO) 5.5 X10'3 (1.8-7.7); NEUTROPHILS % (AUTO) 72.6 % (42-75); PLATELET COUNT 178 X10'3 (140-440); RED BLOOD COUNT 5.35 X10'6 (4.70-6.10); RED CELL DISTRIBUTION WIDTH 13.3 % (11.5-14.5); WHITE BLOOD COUNT 7.5 X10'3 (4.5-11.0)
[2021-06-17 07:45] LABS: ALANINE AMINOTRANSFERASE 21 U/L (12-78); ALBUMIN 3.1 G/DL (3.4-5.0); ALKALINE PHOSPHATASE 77 IU/L (46-116); ANION GAP 18 (8-16); ASPARTATE AMINO TRANSFERASE 10 U/L (10-37); BILIRUBIN,TOTAL 0.8 MG/DL (0.1-1.0); BLOOD UREA NITROGEN 16 MG/DL (7-18); BUN/CREATININE RATIO 27.1 (5.4-32.0); CALCIUM 8.8 MG/DL (8.5-10.1); CHLORIDE 98 MMOL/L (99-107); CREATININE 0.59 MG/DL (0.60-1.10); GLUCOSE 233 MG/DL (70-104); POTASSIUM 4.3 MMOL/L (3.5-5.1); SODIUM 132 MMOL/L (135-145); TOTAL PROTEIN 6.2 G/DL (6.4-8.2); eGFR > 90 ML/MIN
[2021-06-17] MEDS: dexamethasone 6 MG in D5W 100ml IV soln IV SCH (08:41)
[2021-06-17] MEDS: heparin, porcine 5000 units/ml vial SQ SCH ×2 (08:42→22:59)
[2021-06-17] MEDS: nicotine 14mg patch - 24hr TD SCH (08:42)
[2021-06-17] MEDS: atorvastatin 20mg tablet PO SCH (08:42)
[2021-06-17] MEDS: lisinopril 10 MG tablet PO SCH (08:42)
[2021-06-17] MEDS: buPROPion SR 150mg tablet PO SCH ×2 (08:42→22:37)
[2021-06-17 11:00] VITALS: BP 136/85
[2021-06-17] MEDS: insulin Lispro (HumaLOG) vial - multi-dose SQ SCH (14:17)
[2021-06-17 15:00] VITALS: BP 130/82
[2021-06-17 15:32] LABS: ALBUMIN 3.4 G/DL (3.4-5.0); ANION GAP 17 (8-16); BLOOD UREA NITROGEN 21 MG/DL (7-18); BUN/CREATININE RATIO 26.6 (5.4-32.0); CALCIUM 8.5 MG/DL (8.5-10.1); CHLORIDE 98 MMOL/L (99-107); CREATININE 0.79 MG/DL (0.60-1.10); GLUCOSE 350 MG/DL (70-104); POTASSIUM 4.5 MMOL/L (3.5-5.1); SODIUM 131 MMOL/L (135-145); TOTAL CARBON DIOXIDE 16.4 MMOL/L (24-32); eGFR > 90 ML/MIN
--- NOTE | 2021-06-17 16:44 | NUR ---
Page Sent promotional table spacer PAGER ID: [phone] MESSAGE: [phone]- Patient Mayo Hoage in with COVID and DKA. Anion GAP came back at 17, 1 point less than last check. CO2 is 16. will cancel DC order per instructions, do you want anything else? [id number]
--- NOTE | 2021-06-17 18:52 | NUR ---
discharge order discontinued per doctors order. DC was conditional based on BMP result to have the anion gap at 14 or less. Results was 17, therefore discharge has been delayed.
[2021-06-17 20:00] VITALS: BP 130/82
[2021-06-17] MEDS ORDERED: normal saline 1000ml 1,000 ML IV SCH (20:25)
[2021-06-17] MEDS ORDERED: sodium phosphate inj. 30 MMOL in dextrose 5%-water 250 ML IV PRN (20:25)
[2021-06-17] MEDS ORDERED: sodium bicarbonate (8.4%) inj. 50 MEQ in dextrose 5% water 500ml 250 ML IV PRN (20:25)
[2021-06-17] MEDS ORDERED: potassium Cl 20 mEq SR tablet PO PRN ×2 (20:25)
[2021-06-17] MEDS ORDERED: potassium Cl 40MEQ/1/2NS 520ml 520 ML IV PRN ×2 (20:25)
[2021-06-17] MEDS ORDERED: Neutra Phos packet PO PRN (20:25)
[2021-06-17] MEDS ORDERED: sodium bicarbonate (8.4%) inj. 100 MEQ in dextrose 5% water 500ml 500 ML IV PRN (20:25)
[2021-06-17] MEDS ORDERED: insulin regular, human U-100 3ml vial - multi-dose IV PRN (20:25)
[2021-06-17] MEDS ORDERED: sodium phosphate inj. 15 MMOL in dextrose 5%-water 250 ML IV PRN (20:25)
[2021-06-17] MEDS ORDERED: Insulin Reg/NS 100units/100mL 100 ML IV SCH (20:25)
[2021-06-17] MEDS ORDERED: potassium CL 20mEq in D5-1/2NS 1,000 ML IV PRN (20:25)
[2021-06-17] MEDS ORDERED: potassium CL 10mEq/100ml bag 100 ML IV PRN (20:45)
[2021-06-17 21:42] LABS: ALBUMIN 3.5 G/DL (3.4-5.0); ANION GAP 14 (8-16); BLOOD UREA NITROGEN 18 MG/DL (7-18); CALCIUM 9.4 MG/DL (8.5-10.1); CHLORIDE 96 MMOL/L (99-107); CREATININE 0.72 MG/DL (0.60-1.10); GLUCOSE 272 MG/DL (70-104); PHOSPHORUS 2.9 MG/DL (2.3-4.5); POTASSIUM 4.7 MMOL/L (3.5-5.1); SODIUM 130 MMOL/L (135-145); TOTAL CARBON DIOXIDE 19.6 MMOL/L (24-32); eGFR > 90 ML/MIN
[2021-06-17 22:00] VITALS: BP 128/86
[2021-06-18 02:00] VITALS: BP 126/82
--- NOTE | 2021-06-18 02:02 | NUR ---
Patient placed on DKA protocol following anion gap results of [address] Clark's order. Last lab showed anion gap level 14. Dr Mahmood notified.
[2021-06-18 06:00] VITALS: BP 135/82
[2021-06-18 06:57] LABS: BASOPHILS % (AUTO) 0.2 % (0-1); EOSINOPHILS % (AUTO) 0.1 % (0-6); HEMATOCRIT 47.8 % (42.0-52.0); HEMOGLOBIN 16.4 g/dl (14.0-17.9); LYMPHOCYTES # (AUTO) 1.4 X10'3 (1.1-4.8); LYMPHOCYTES % (AUTO) 18.3 % (21-51); MEAN CORPUSCULAR HEMOGLOBIN 29.3 PG (27.0-31.0); MEAN CORPUSCULAR HGB CONC 34.2 g/dL (33.0-36.5); MEAN CORPUSCULAR VOLUME 85.6 FL (78-98); MEAN PLATELET VOLUME 8.7 FL (7.4-10.4); MONOCYTES # (AUTO) 0.7 X10'3 (0-0.9); MONOCYTES % (AUTO) 9.4 % (2-12); NEUTROPHILS # (AUTO) 5.6 X10'3 (1.8-7.7); PLATELET COUNT 218 X10'3 (140-440); RED BLOOD COUNT 5.59 X10'6 (4.70-6.10); RED CELL DISTRIBUTION WIDTH 13.3 % (11.5-14.5); WHITE BLOOD COUNT 7.8 X10'3 (4.5-11.0)
[2021-06-18] MEDS ORDERED: K and/or MAG REPLACEMENT MC SCH (08:00)
[2021-06-18 08:05] LABS: ALANINE AMINOTRANSFERASE 23 U/L (12-78); ALBUMIN 3.2 G/DL (3.4-5.0); ALKALINE PHOSPHATASE 81 IU/L (46-116); ANION GAP 19 (8-16); ASPARTATE AMINO TRANSFERASE 8 U/L (10-37); BILIRUBIN,TOTAL 0.8 MG/DL (0.1-1.0); BLOOD UREA NITROGEN 17 MG/DL (7-18); BUN/CREATININE RATIO 32.7 (5.4-32.0); CHLORIDE 98 MMOL/L (99-107); CREATININE 0.52 MG/DL (0.60-1.10); GLUCOSE 251 MG/DL (70-104); POTASSIUM 4.4 MMOL/L (3.5-5.1); SODIUM 133 MMOL/L (135-145); TOTAL CARBON DIOXIDE 15.7 MMOL/L (24-32); TOTAL PROTEIN 6.5 G/DL (6.4-8.2); eGFR > 90 ML/MIN
[2021-06-18] MEDS: atorvastatin 20mg tablet PO SCH (08:15)
[2021-06-18] MEDS: buPROPion SR 150mg tablet PO SCH (08:15)
[2021-06-18] MEDS: lisinopril 10 MG tablet PO SCH (08:16)
[2021-06-18] MEDS: nicotine 14mg patch - 24hr TD SCH (08:17)
[2021-06-18] MEDS: heparin, porcine 5000 units/ml vial SQ SCH (08:17)
[2021-06-18] MEDS: insulin Lispro (HumaLOG) vial - multi-dose SQ SCH (08:40)
[2021-06-18] MEDS: dexamethasone 6 MG in D5W 100ml IV soln IV SCH (08:42)
[2021-06-18 11:00] VITALS: BP 129/79
--- NOTE | 2021-06-18 11:19 | NUR ---
Reassessment: Pt PO intake 100% of carb controlled meals, mostly meeting nutritional needs. Recommend double protein BIDBD per pt request to help w/ satiety. Noted current A1c 10.0% up from 7.9% 11/27/20 per EMR. human resources intern provided verbal DM education by phone and provided written DM education and RD contact information in pt chart. LBM 2/2; could benefit from bowel care. Will continue to follow closely and make recommendations as appropriate. Recommendations: 1) Continue CHO controlled diet as tolerated 2) Double protein BIDBD 3) Routine bowel care 4) Weekly scaled weights Addendum: 06/18/21 at 1120 by Daryn Ramos [employer] [address] Amended: Links added. Addendum: 06/18/21 at [address] I have reviewed assessment by internal medicine nurse practitioner
[2021-06-18 15:00] VITALS: BP 123/77
--- NOTE | 2021-06-18 16:01 | NUR ---
Page sent: PAGER ID: [phone] MESSAGE: [phone]. Mayo Gallego. I have been able to get his BG down to 184 on the Gtt, he's not back to 204. he wants to go home bc he says he has to move out where he's staying tonight bc the house has been sold. I have ordered stat BMP. Odalys [id number]
[2021-06-18 17:16] LABS: ALANINE AMINOTRANSFERASE 21 U/L (12-78); ALBUMIN 3.4 G/DL (3.4-5.0); ALKALINE PHOSPHATASE 92 IU/L (46-116); ANION GAP 16 (8-16); ASPARTATE AMINO TRANSFERASE 13 U/L (10-37); BILIRUBIN,TOTAL 0.6 MG/DL (0.1-1.0); BLOOD UREA NITROGEN 19 MG/DL (7-18); BUN/CREATININE RATIO 35.8 (5.4-32.0); CALCIUM 9.2 MG/DL (8.5-10.1); CHLORIDE 97 MMOL/L (99-107); CREATININE 0.53 MG/DL (0.60-1.10); GLUCOSE 190 MG/DL (70-104); POTASSIUM 4.1 MMOL/L (3.5-5.1); SODIUM 132 MMOL/L (135-145); TOTAL CARBON DIOXIDE 18.8 MMOL/L (24-32); TOTAL PROTEIN 6.8 G/DL (6.4-8.2); eGFR > 90 ML/MIN
[2021-06-18] MEDS: dextrose 5%-1/2 normal saline 1,000 ML IV SCH (17:49)
--- NOTE | 2021-06-18 18:15 | NUR ---
Page Sent in regards of patient leaving AMA after he eats his dinner. charge nurse is aware. promotional table spacer PAGER ID: [phone] MESSAGE: [phone]- Mayo Julián. patient anion gap slightly improved but not at goal anion 16, CO2 18.8. I have explained to pt about what you said in regards of his discharge. he opted to leave AMA. Odalys [id number]
== END 2021-06-18 19:29 | disposition left against medical advice (07) | DRG 420 ==
LOC: ER 09:26 → ED HOLD 13:54 → PCU 3S 19:00
PROVIDERS: ADMIT Internal Medicine; ATTEND Internal Medicine
DX: E11.10 Type 2 diabetes mellitus with ketoacidosis without coma (principal); N17.0 Acute kidney failure with tubular necrosis; U07.1 COVID-19; E87.5 Hyperkalemia; E86.0 Dehydration; F17.210 Nicotine dependence, cigarettes, uncomplicated; N18.30 Chronic kidney disease, stage 3 unspecified; I12.9 Hypertensive chronic kidney disease with stage 1 through stage 4 chronic kidney disease, or unspecified chronic kidney disease; E78.00 Pure hypercholesterolemia, unspecified; E11.22 Type 2 diabetes mellitus with diabetic chronic kidney disease; Z53.29 Procedure and treatment not carried out because of patient's decision for other reasons; E87.1 Hypo-osmolality and hyponatremia; F32.A Depression, unspecified; E78.5 Hyperlipidemia, unspecified; F12.90 Cannabis use, unspecified, uncomplicated; Z71.51 Drug abuse counseling and surveillance of drug abuser; Z82.49 Family history of ischemic heart disease and other diseases of the circulatory system; Z79.899 Other long term (current) drug therapy; Z56.0 Unemployment, unspecified; Z71.6 Tobacco abuse counseling
CPT/HCPCS: 36415; 36600; 71045; 80048; 80053; 80061; 80305; 81001; 82803; 82948; 83036; 83605; 83735; 84100; 84145; 85007; 85018; 85025; 87040; 87081; 87635; 93005; 97161; 97530; 99285; C9803; G0378; J1100; J1644; J1815; J1940; J3490; J7030; J7042; J7060